=== PATIENT | female | born 1975 | race Caucasian/White ===

== ENCOUNTER 2021-12-17 20:00 | Emergency (ER) | payer MEDICAID ==
[~2021-12-17] VITALS: Ht 157.5 cm; Wt 68.9 kg
[2021-12-17 20:00] VITALS: BP 132/74
--- NOTE | 2021-12-17 21:30 | NUR ---
Pt ambualted to bed 8 with steady gait.
--- NOTE | 2021-12-17 22:05 | NUR ---
46 Y/O PT BIB FOR BILAT BREAST PAIN AND STOMACH PAIN. PT DENIES ANY TRAUMA. PT DENIES F/C/NAUSEA/ VOMITING/ SOB/ PT STATES SHE DOES NOT HAVE MEDICAL INSURANCE AND DOES NOT KNOW HOW TO FOLLOW UP WITH DR. PT DENIES ALLERGIES PT TOOK NOTHING FOR PAIN.
[2021-12-17 23:01] VITALS: BP 135/78
--- NOTE | 2021-12-17 23:01 | NUR ---
Patient discharged with v/s stable. Written and verbal after care instructions given and explained. Patient verbalized understanding. Ambulatory with steady gait. All questions addressed prior to discharge. Advised to follow up with PMD.
== END 2021-12-17 23:01 | disposition home or self-care (01) ==
LOC: MED 20:00
DX: N91.1 Secondary amenorrhea (principal); E03.9 Hypothyroidism, unspecified; Z90.89 Acquired absence of other organs
CPT/HCPCS: 81002; 81025; 99285